=== PATIENT | male | born 1990 | race African-American/Black ===

== ENCOUNTER 2016-11-28 19:27 | Emergency (ER) | payer SELFPAY ==
[2016-11-28] MEDS ORDERED: SODIUM CHLORIDE 0.9% 1,000 ML ONE ×2 (20:28→21:07)
== END 2016-11-28 23:11 | disposition home or self-care (01) ==
LOC: ER 19:27
DX: R55 Syncope and collapse (principal); J45.909 Unspecified asthma, uncomplicated; F17.210 Nicotine dependence, cigarettes, uncomplicated; Z97.4 Presence of external hearing-aid
CPT/HCPCS: 36415; 80053; 82947; 85025; 93005; 96360; 96361